=== PATIENT | male | born 1950 | race Caucasian/White ===

== ENCOUNTER 2021-07-09 16:56 | Emergency (ER) | payer MEDICARE, OTHER ==
[~2021-07-09 16:56] MED LIST: GLUCOPHAGE850 MG PO; GLUCOTROL5 MG PO
[2021-07-09 18:34] LABS: BASOPHIL 0.5 % (0-2); EOSINOPHIL 0.3 % (0-7); HCT 51.9 % (42.0-52.0); HGB 16.7 g/dl (13.2-18.0); LYMPHOCYTE 10.8 % (15-48); MCH 31.9 pg (25.0-31.0); MCHC 32.2 g/dL (32.0-36.0); MCV 99.2 fL (78.0-100.0); MONOCYTE 5.6 % (0-12); MPV 10.8 fL (6.0-9.5); NEUTROPHIL 82.2 % (41-80); NRBC 0; PLT 261 K/uL (150-400); RBC 5.23 M/uL (4.70-6.00); RDW 12.5 % (11.5-14.0); WBC 11.3 K/uL (4.0-10.5)
[2021-07-09 18:54] LABS: ALBUMIN 4.4 g/dL (3.4-5.0); BILIRUBIN - TOTAL 0.6 mg/dL (0.2-1.0); BUN/CREAT RATIO (CALC) 24.3 RATIO; CREATININE 1.36 mg/dL (0.67-1.17); GLOBULIN (CALCULATION) 3.6 g/dL; POTASSIUM 4.6 mmol/L (3.5-5.1)
[2021-07-09] MEDS ORDERED: GLUCOSE33 GM BU (19:55)
== END 2021-07-09 20:35 | disposition home or self-care (01) ==
LOC: FER 16:56
PROVIDERS: Nurse Practitioner Family
DX: E11.649 Type 2 diabetes mellitus with hypoglycemia without coma (principal); I10 Essential (primary) hypertension; I25.2 Old myocardial infarction; Z95.0 Presence of cardiac pacemaker; Z79.84 Long term (current) use of oral hypoglycemic drugs; Z79.899 Other long term (current) drug therapy
CPT/HCPCS: 36415; 80053; 85025; 99283

== ENCOUNTER 2022-03-02 10:54 | Emergency (ER) | payer MEDICARE ==
[~2022-03-02 10:54] MED LIST changes: +GLUCOSE33 GM BU
[2022-03-02 11:49] LABS: BASOPHIL 0.3 % (0-2); EOSINOPHIL 0 % (0-7); HCT 51.5 % (42.0-52.0); LYMPHOCYTE 7.4 % (15-48); MCH 32.3 pg (25.0-31.0); MCV 97.7 fL (78.0-100.0); MONOCYTE 3.5 % (0-12); MPV 9.7 fL (6.0-9.5); NEUTROPHIL 88.4 % (41-80); NRBC 0; PLT 221 K/uL (150-400); RBC 5.27 M/uL (4.70-6.00); RDW 11.5 % (11.5-14.0); WBC 7.1 K/uL (4.0-10.5)
[2022-03-02 12:15] LABS: ALBUMIN 4.2 g/dL (3.4-5.0); BILIRUBIN - TOTAL 0.8 mg/dL (0.2-1.0); BUN/CREAT RATIO (CALC) 20.2 RATIO; CREATININE 1.29 mg/dL (0.67-1.17); GLOBULIN (CALCULATION) 3.1 g/dL; POTASSIUM 4.5 mmol/L (3.5-5.1); TOTAL PROTEIN 7.3 g/dL (6.4-8.2)
== END 2022-03-02 14:21 | disposition home or self-care (01) ==
LOC: FER 10:54
PROVIDERS: Emergency Medicine
DX: E11.649 Type 2 diabetes mellitus with hypoglycemia without coma (principal)
CPT/HCPCS: 36415; 80053; 84145; 85025; 99285